=== PATIENT | female | born 1960 | race Caucasian/White ===

== ENCOUNTER 2021-07-14 14:55 | Emergency (ER) | payer OTHER ==
[2021-07-14 15:42] VITALS: TEMP 97.9; BMI 16.6
[2021-07-14] MEDS ORDERED: LACTATED RINGERS SOLUTION 1000 ML INFUS.BAG IV ONE (16:09)
[2021-07-14 16:37] LABS: BASO % 0.2 % (0-2.0); EOS % 0.9 % (0-4.5); HEMATOCRIT 35.2 % (32.4-45.2); HEMOGLOBIN 12.1 GM/dL (10.7-15.3); LYMPH % 12.5 % (8-40); MCH 28.8 pg (25.7-33.7); MCHC 34.2 g/dl (32.0-36.0); MEAN CELL VOLUME 84.2 fl (80-96); MONO % 13.1 % (3.8-10.2); NEUT % 73.3 % (42.8-82.8); PLATELET COUNT 340 10^3/uL (134-434); RBC 4.18 M/mm3 (3.60-5.2); RDW 14.1 % (11.6-15.6); WHITE BLOOD COUNT 6.6 K/mm3 (4.0-10.0)
[2021-07-14 16:48] LABS: CHLORIDE 106 mmol/L (98-107); SODIUM 139 mmol/L (136-145)
[2021-07-14 16:51] LABS: ALBUMIN 3.1 g/dl (3.4-5.0); ANION GAP 9 MMOL/L (8-16); BLOOD UREA NITROGEN 15.9 mg/dL (7-18); CO2 25 mmol/L (21-32); GLUCOSE,RANDOM 99 mg/dL (74-106)
[2021-07-14 16:54] LABS: CREATININE 0.6 mg/dL (0.55-1.3); SGOT/AST 94 U/L (15-37); SGPT/ALT 102 U/L (13-61)
[2021-07-14 16:56] LABS: BILIRUBIN,TOTAL 0.4 mg/dL (0.2-1)
[2021-07-14 16:57] LABS: ALK PHOS 381 U/L (45-117)
[2021-07-14 17:42] VITALS: BP 133/82; PULSE 97
== END 2021-07-14 17:55 | disposition home or self-care (01) ==
LOC: JER 14:55
DX: R00.0 Tachycardia, unspecified (principal)
CPT/HCPCS: 36415; 71046-TC-FY; 80053; 82550; 84443; 84484; 85025; 93005; 93010; 99285-25; C9803; U0003; U0005

== ENCOUNTER 2021-12-15 07:23 | Emergency (ER) | payer OTHER ==
[2021-12-15 07:42] VITALS: BP 128/84; PULSE 78; TEMP 98.1; BMI 16.1
== END 2021-12-15 09:50 | disposition home or self-care (01) ==
LOC: JERFT 07:23 → JER 07:23 → JERFT 09:50
DX: M54.50 Low back pain, unspecified (principal); M41.9 Scoliosis, unspecified
CPT/HCPCS: 72070-TC-FY; 72100-TC-FY; 99284-25